=== PATIENT | male | born 1935 | race Caucasian/White ===

== ENCOUNTER 2019-03-07 07:32 | Day surgery (SDC) | payer MEDICARE, OTHER ==
--- NOTE | 2019-02-28 15:30 | HP ---
CC: Dr. Judd Ruff * PREOPERATIVE HISTORY AND PHYSICAL: DATE OF ADMISSION/SURGERY: 03/07/19 This patient is scheduled for same-day surgery admission by Dr. Lopes on 03/07/19. DATE OF PREOPERATIVE HISTORY AND PHYSICAL EXAMINATION: 02/28/19. ATTENDING SURGEON: Dr. Jaiden Lopes * (dictated by Fabiola Avery NP). CHIEF COMPLAINT: Right groin hernia. HISTORY OF PRESENT ILLNESS: The patient is an 83-year-old male recently evaluated by Dr. Lopes after he noticed a lump in the right groin while showering. It spontaneously reduces, but sometimes he has to manually reduce it. With certain activities, he notes pain; he continues to go to the gym twice a week and that does not seem to cause pain. He denies any signs or symptoms to suggest incarceration or strangulation; he denies any change in bowel or urinary habits. Dr. Lopes examined the patient and noticed a reducible right inguinal hernia; Dr. Lopes explained the nature of hernias and their potential complications and recommended surgical repair and discussed the various surgical options. The patient has opted for laparoscopic right inguinal hernia repair with mesh as a same-day surgery procedure under general anesthesia. Dr. Lopes discussed the relevant risks and benefits and today, I reviewed the expected postoperative care and recovery. The patient has had a chance to ask questions and stated that he understands the information and is satisfied with the answers given to his questions. He will sign surgical consent on the day of surgery. PAST MEDICAL HISTORY: Significant for paroxysmal atrial fibrillation, followed by Dr. Alex and please refer to Dr. Alex's office note of 01/12/19 as she has cleared the patient to proceed with surgery. PAST SURGICAL HISTORY: Right hand surgery after trauma; vasectomy; and resection of skin lesions on 2 separate occasions. MEDICATIONS: 1. Eliquis 5 mg p.o. b.i.d. and the patient will take his last dose in preparation for surgery on the evening of 03/03/19, so he will be off the Eliquis for 3 full days preoperatively as recommended by Dr. Alex. 2. Metoprolol ER 25 mg one-half tablet p.o. daily. 3. Selenium 100 mcg p.o. daily. 4. Vitamin D3 1000 International Units daily. 5. Healthy Eyes SuperVision Eye Vitamin 2 tablets p.o. daily. ALLERGIES: No known drug allergies. FAMILY HISTORY: No known anesthesia complications, bleeding tendencies, or clotting disorders. SOCIAL HISTORY: He is and his accompanied him to the visit today. 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 He consumes a glass of scotch and a glass of wine daily. He denies the use of other substances. He is a former pipe smoker, who quit in 1969. REVIEW OF SYSTEMS: Constitutional: No fevers, chills, excessive fatigue, or weight loss. General: No history of anesthesia complications. No history of deep vein thrombosis or pulmonary embolism. No unusual bleeding while on anticoagulation, but he does bruise easily. Endocrine: No diabetes or thyroid disease. Respiratory: No dyspnea on exertion. No chronic cough. He exercises by playing pickleball. Cardiovascular: No anginal chest pain or palpitations. He does have a history of atrial fibrillation, atrial flutter. Currently, the rate is well controlled on metoprolol. Gastrointestinal: No nausea, vomiting, diarrhea, GI bleeding, constipation, or change in bowel habits. Genitourinary: No dysuria. He does get up 1 to 2 times a night to urinate. Musculoskeletal: Normal strength and tone. Neurologic: No headache or blurred vision. No areas of focal weakness or numbness. No syncopal episodes. Psychiatric: No reported insomnia, anxiety, or depression. PHYSICAL EXAMINATION GENERAL SURVEY: The patient is an 83-year-old male, well developed, well nourished, in no acute distress. VITAL SIGNS: Height 68 inches, weight 151 pounds, body mass index 23. Blood pressure 138/84, pulse 60 and regular, respiratory rate 16, temperature 97.2 tympanic. HEENT: Benign. NECK: Supple. No cervical lymphadenopathy. LUNGS: Breath sounds bilaterally clear and equal. HEART: Irregularly irregular. No murmurs or rubs. ABDOMEN: Active bowel sounds. Soft and nondistended, nontender throughout. Inguinal exam done by Dr. Lopes revealed a reducible right inguinal hernia. No left inguinal hernia. BACK: No CVA tenderness. RECTAL: Exam deferred. EXTREMITIES: Warm without edema or skin ulcerations. NEUROLOGIC: Alert and oriented x3. Steady gait. SKIN: Warm, dry, intact. IMPRESSION: Right inguinal hernia. PLAN: Same-day surgery admission to Dr. Lopes' service on 03/07/19, for laparoscopic right inguinal hernia repair with mesh. As previously mentioned, the patient will hold Eliquis for 3 days preoperatively, taking the last dose in the evening on 03/03/19, and Dr. Alex recommends resuming the Eliquis when Dr. Lopes feels it is appropriate. LISA AVERY, INTERNATIONAL TRADE SPECIALIST [id number]/[facility] #: [id number] EMILE
[~2019-03-07 07:32] MED LIST: Acetaminophen TAB* 325 MG PO ONE; Buffered Lidocaine 1% SYRIN* 1 ML/SYRINGE INTRADERM ONE; Bupivacaine 0.25% EPI 200,000* 30 ML SDV ONE; Lactated Ringers 1000 ML Bag* 1,000 ML IV SCH
[2019-03-07] MEDS ORDERED: ceFAZolin 2 GM in NS PREMIX(*) 2 GM/100 ML BAG IVPB ONE (07:51)
[2019-03-07] MEDS ORDERED: Heparin VIAL(*) 5000 UNITS/ML VIAL (FIVE THOUSAND) ONE (07:51)
[2019-03-07] MEDS ORDERED: Acetaminophen TAB* 325 MG ONE (08:07)
[2019-03-07] MEDS ORDERED: PROCHLORPERAZINE INJ 5 MG/ML 2 ML VIAL IV PRN (08:19)
[2019-03-07] MEDS ORDERED: Ondansetron INJ* 2 MG/ML VIAL IV PRN (08:19)
[2019-03-07] MEDS ORDERED: oxyCODONE TAB* 5 MG TAB PO PRN (08:19)
[2019-03-07] MEDS ORDERED: Naloxone* 0.4 MG/ML 1 ML VIAL IV PRN (08:19)
[2019-03-07] MEDS ORDERED: diPHENhydraMINE IV* 50 MG/ML 1 ml VIAL (BENADRYL) IV PRN (08:19)
[2019-03-07] MEDS ORDERED: fentaNYL* 50 MCG/ML 2 ML VIAL (100 MCG VIAL) ONE (08:27)
[2019-03-07] MEDS ORDERED: Midazolam* 1 MG/ML 2 ML VIAL (2 MG) ONE (08:27)
[2019-03-07] MEDS ORDERED: Propofol* 10 MG/ML 20 ML BTL ONE (08:29)
[2019-03-07] MEDS ORDERED: Lidocaine 2% PF* 10 ML AMP ONE (08:30)
[2019-03-07] MEDS ORDERED: Rocuronium* 10 MG/ML VIAL ONE ×2 (08:30→10:22)
[2019-03-07] MEDS ORDERED: Phenylephrine 40 MCG/ML SYRINGE ONE ×2 (09:00→09:10)
[2019-03-07] MEDS ORDERED: Phenylephrine 10 MG/ML VIAL* 1 ML VIAL ONE (09:20)
[2019-03-07] MEDS ORDERED: HYDROmorphone INJ1* 1 MG/ML SYRINGE ONE ×2 (09:52→10:50)
[2019-03-07] MEDS ORDERED: Ketorolac INJ* 30 MG/ML 1 ML VIAL ONE (10:28)
[2019-03-07] MEDS ORDERED: Ondansetron INJ* 2 MG/ML VIAL ONE (10:28)
[2019-03-07] MEDS ORDERED: Sugammadex * 200 MG/2 ML VIAL IV PUSH ONE (10:33)
[2019-03-07] MEDS: HYDROmorphone INJ1* 1 MG/ML SYRINGE IV PRN ×2 (10:51→11:01)
[2019-03-07] MEDS ORDERED: oxyCODONE TAB* 5 MG TAB ONE (11:15)
[2019-03-07 12:51] VITALS: BP 151/86
--- NOTE | 2019-03-07 20:24 | OP ---
CC: Judd Ruff MD * DATE OF OPERATION: 03/07/19 - [facility] DATE OF : 33 SURGEON: Jaiden Lopes MD. LAB ASSISTANT: DEBORAH Benavides. ANESTHESIOLOGIST: Chloé Iverson MD. ANESTHESIA: General endotracheal. PRE-OP DIAGNOSIS: Right inguinal hernia. POST-OP DIAGNOSIS: Right inguinal hernia. OPERATIVE PROCEDURE: Laparoscopic transabdominal preperitoneal repair of right inguinal hernia with mesh. ESTIMATED BLOOD LOSS: Minimal. IV FLUIDS: Crystalloid. SPECIMEN: None. DRAINS: None. COMPLICATIONS: None. COUNTS: The instrument, needle, and sponge counts correct. OPERATIVE FINDINGS: Indirect right inguinal hernia. DESCRIPTION OF PROCEDURE: The patient was brought to the operating room and placed on the table supine. Sequential compression devices were placed in both lower extremities. General anesthesia was administered. The patient had a Allred catheter placed, then was positioned and padded appropriately, prepped and draped in the usual sterile fashion, and he received appropriate preoperative antibiotics. Local anesthetic was infiltrated into the skin and soft tissue prior to making each incision. Entry to the abdomen was through a supraumbilical right side of midline incision accommodating an 11-mm trocar. First, Veress needle was passed into the peritoneal cavity and carbon dioxide insufflated to a pressure of 15 mmHg. Next, the 11-mm trocar was placed and then laparoscope introduced. The inspection revealed no injury to the underlying viscera. Under direct visualization, 5-mm trocars were placed in the right lower quadrant and also in the left lower quadrant. Inspection of the groin revealed an indirect right inguinal hernia containing appendix. There was a dimple on the left inguinal region, which was suspicious for hernia but close inspection did not reveal this to be a hernia. Preperitoneal dissection proceeded about 8 cm cephalad to the ilioinguinal ligament. The peritoneum was incised transversely and then the peritoneal pocket was created using a combination of sharp and blunt dissection with cautery. Dissection proceeded down to the symphysis pubis and the Jeff ligament was identified. The inferior epigastric vessels were identified and preserved anteriorly. Dissection proceeded out laterally to the anterior superior iliac supine. The indirect inguinal hernia sac was retracted and cord structures were dissected free from this. They were preserved. The sac was completely dissected free and the retroperitoneal dissection proceeded to create an adequate space to place the Medtronic ProGrip right-sided anatomical mesh. The mesh was placed into the peritoneal cavity and positioned crossing the midline and covering the direct, indirect and femoral spaces. Once the mesh was in good position, the peritoneal incision was closed with 3-0 V-Loc 90 suture running. The hernia sac was sutured up to the peritoneal membrane in the lateral direction. The rent in the peritoneum near the inferior most aspect of the dissection was closed with a suture of 3-0 Vicryl. Inspection revealed no defects within the peritoneum. The hemostasis was assured. The ports were removed under direct visualization. Carbon dioxide was released. The 11-mm port site was closed with 0 Vicryl to approximate the anterior and posterior fascia. Skin incisions were closed with 4-0 Monocryl in subcuticular fashion and DermaFlex was applied. The patient tolerated this procedure well. He was extubated uneventfully. He was transferred to Recovery in stable condition. [id number]/[facility] #: [id number] MTDD
== END 2019-03-07 12:50 | disposition home or self-care (01) ==
LOC: OR 07:32
PROVIDERS: ATTEND Surgery
DX: K40.90 Unilateral inguinal hernia, without obstruction or gangrene, not specified as recurrent (principal); Z87.891 Personal history of nicotine dependence; I48.0 Paroxysmal atrial fibrillation; I10 Essential (primary) hypertension; Z79.01 Long term (current) use of anticoagulants
CPT/HCPCS: 93005; A9270-GY; C1781; J0690; J1170; J1644; J1885; J2001; J2250; J2405; J2704; J3010

== ENCOUNTER 2022-08-23 19:23 | Observation (INO) ==
[2022-08-23] MEDS ORDERED: Iodixanol (CONTRAST) 320 MG/ML 100 ML SDV IV ONE (19:59)
[2022-08-23 20:06] LABS: ABS Basophils 0.1 10^3/uL (0.0-0.1); ABS Eosinophils 0.3 10^3/uL (0.0-0.5); ABS Lymphocytes 2.3 10^3/uL (1.0-4.8); ABS Monocytes 1.1 10^3/uL (0.0-1.1); ABS Neutrophils 4.5 10^3/uL (1.5-7.6); ABS Nucleated RBC 0.01 10^3/ul; Hematocrit 45.5 % (38-53); Hemoglobin 15.6 g/dL (13.2-16.3); Lymphocyte % 27.6 %; Mean Corpuscular Hemoglobin 33.2 pg (27-33); Mean Corpuscular Hgb Conc 34.4 g/dL (31-36); Mean Corpuscular Volume 96.5 fL (80-97); Mean Platelet Volume 7.7 fL (7.5-11.2); Nucleated Red Blood Cells % 0.2 /100 WBC (0.0-0.4); Platelet Count 230 10^3/uL (150-450); Red Blood Count 4.72 10^6/uL (4.06-5.63); White Blood Count 8.3 10^3/uL (3.6-10.2)
[2022-08-23 20:30] LABS: Activated Partial Thrombo Time 32.9 seconds (26.0-38.0); INR 1.35 (0.88-1.18)
[2022-08-23 20:46] LABS: Albumin/Globulin Ratio 1.6 (1-3); Calcium 9.2 mg/dL (8.6-10.3); Creatinine, Serum 1.56 mg/dL (0.67-1.17); Globulin 2.5 g/dL (2-4); HDL Cholesterol 36.7 mg/dL; Potassium 4.6 mmol/L (3.5-5.0); Total Bilirubin 0.5 mg/dL (0.2-1.0); Total Protein 6.5 g/dL (6.4-8.9); eGFR CKD-EPI 42.7 (>60)
[2022-08-23 21:06] LABS: Urine Appearance Clear; Urine Bilirubin Negative (Negative); Urine Blood Negative (Negative); Urine Color Yellow; Urine Glucose Negative (Negative); Urine Ketones Negative (Negative); Urine Nitrite Negative (Negative); Urine Protein Negative (Negative); Urine Specific Gravity 1.032 (1.002-1.030); Urine Urobilinogen Negative (Negative)
[2022-08-24 05:47] LABS: Blood Urea Nitrogen 23 mg/dL (6-24); CO2 Carbon Dioxide 25 mmol/L (22-32); Calcium 8.6 mg/dL (8.6-10.3); Chloride 101 mmol/L (101-111); Creatinine, Serum 1.16 mg/dL (0.67-1.17); Glucose 92 mg/dL (70-100); Sodium 133 mmol/L (135-145)
[2022-08-24 05:49] LABS: Anion Gap 7 mmol/L (2-16)
[2022-08-24 17:12] VITALS: BP 183/102
== END 2022-08-24 17:57 | disposition home or self-care (01) ==
LOC: EDHOLD 19:23 → ED 19:23 → SUATTDRO 23:04 → EDHOLD 08-24 17:57
PROVIDERS: ADMIT Internal Medicine; ATTEND Internal Medicine

== ENCOUNTER 2022-09-03 17:50 | Observation (INO) ==
[2022-09-03 20:38] LABS: Hematocrit 47.4 % (38-53); Hemoglobin 16.1 g/dL (13.2-16.3); Mean Corpuscular Hemoglobin 33.3 pg (27-33); Mean Corpuscular Volume 97.9 fL (80-97); Mean Platelet Volume 7.6 fL (7.5-11.2); Platelet Count 262 10^3/uL (150-450); Red Blood Count 4.85 10^6/uL (4.06-5.63); Red Cell Distribution Width 12.9 % (12-17); White Blood Count 8.2 10^3/uL (3.6-10.2)
[2022-09-03 21:13] LABS: Calcium 9.3 mg/dL (8.6-10.3); Creatinine, Serum 1.39 mg/dL (0.67-1.17); eGFR CKD-EPI 49.1 (>60)
[2022-09-04 02:30] LABS: TSH Ultra Thyroid Stim Horm 9.18 mcIU/mL (0.34-5.60)
[2022-09-04] MEDS ORDERED: Cholecalciferol (VIT D3) 1,000 unit TAB PO SCH (09:00)
[2022-09-04 11:55] VITALS: BP 155/105
== END 2022-09-04 11:55 | disposition home or self-care (01) ==
LOC: ED 17:50 → EDHOLD 17:50 → SUATTDRO 09-04 01:06 → EDHOLD 09-04 11:54
PROVIDERS: ADMIT Hospitalist; ATTEND Internal Medicine

== ENCOUNTER 2023-10-08 18:45 | Observation (INO) ==
[2023-10-08 20:08] LABS: ABS Eosinophils 0.2 10^3/uL (0.0-0.5); ABS Lymphocytes 2.1 10^3/uL (1.0-4.8); ABS Monocytes 1.3 10^3/uL (0.0-1.1); ABS Neutrophils 9.5 10^3/uL (1.5-7.6); ABS Nucleated RBC 0.01 10^3/ul; Eosinophil % 1.7 %; Hematocrit 25.8 % (38-53); Hemoglobin 8.8 g/dL (13.2-16.3); Lymphocyte % 16.2 %; Mean Corpuscular Hemoglobin 33.3 pg (27-33); Mean Corpuscular Hgb Conc 34.1 g/dL (31-36); Mean Corpuscular Volume 97.6 fL (80-97); Platelet Count 215 10^3/uL (150-450); Red Blood Count 2.64 10^6/uL (4.06-5.63); Red Cell Distribution Width 13.1 % (12-17); White Blood Count 13.1 10^3/uL (3.6-10.2)
[2023-10-08 20:16] LABS: INR 1.43 (0.83-1.13)
[2023-10-08 21:00] LABS: ALT 13 U/L (7-52); AST 18 U/L (13-39); Albumin 3.4 g/dL (3.2-5.2); Albumin/Globulin Ratio 1.8 (1-3); Alkaline Phosphatase 50 U/L (35-149); Anion Gap 5 mmol/L (2-16); Blood Urea Nitrogen 69 mg/dL (6-24); CO2 Carbon Dioxide 25 mmol/L (22-32); Calcium 8.7 mg/dL (8.6-10.3); Chloride 104 mmol/L (101-111); Creatinine, Serum 1.45 mg/dL (0.67-1.17); Globulin 1.9 g/dL (2-4); Glucose 102 mg/dL (70-100); Potassium 4.9 mmol/L (3.5-5.0); Sodium 134 mmol/L (135-145); Total Bilirubin 0.4 mg/dL (0.2-1.0); Total Protein 5.3 g/dL (6.4-8.9); eGFR CKD-EPI 46.3 (>60)
[2023-10-08] MEDS: Iodixanol (CONTRAST) 320 MG/ML 100 ML SDV IV ONE (21:47)
[2023-10-09] MEDS: Pantoprazole VIAL 40 MG VIAL IV SCH (01:42)
[2023-10-09] MEDS ORDERED: Metoclopramide 5 MG/ML VIAL (10 mg) IV PRN (01:52)
[2023-10-09] MEDS: Lactated Ringers 1000 ml BAG 1,000 ML IV SCH (01:57)
[2023-10-09 02:20] LABS: C Reactive Protein 2.19 mg/L (<8.01); Magnesium 1.7 mg/dL (1.9-2.7)
[2023-10-09 03:28] LABS: Folate > 20.00 ng/mL (5.90-24.80)
[2023-10-09 03:29] LABS: Vitamin B12 224 pg/mL (180-914)
[2023-10-09] MEDS: Magnesium Sulfate IV 1GM/100ML 1 GM/100 ML BAG IV ONE (03:30)
[2023-10-09 03:47] LABS: ABS Basophils 0.1 10^3/uL (0.0-0.1); ABS Eosinophils 0.3 10^3/uL (0.0-0.5); ABS Lymphocytes 1.7 10^3/uL (1.0-4.8); ABS Neutrophils 8.5 10^3/uL (1.5-7.6); ABS Nucleated RBC 0.01 10^3/ul; Eosinophil % 2.5 %; Hematocrit 22.5 % (38-53); Hemoglobin 7.6 g/dL (13.2-16.3); Lymphocyte % 14.7 %; Mean Corpuscular Hgb Conc 33.8 g/dL (31-36); Mean Corpuscular Volume 97.7 fL (80-97); Mean Platelet Volume 8.1 fL (7.5-11.2); Platelet Count 203 10^3/uL (150-450); Red Cell Distribution Width 13.3 % (12-17); White Blood Count 11.6 10^3/uL (3.6-10.2)
[2023-10-09 07:05] LABS: ALT 13 U/L (7-52); Albumin 3.2 g/dL (3.2-5.2); Albumin/Globulin Ratio 1.7 (1-3); Alkaline Phosphatase 43 U/L (35-149); Anion Gap 6 mmol/L (2-16); Blood Urea Nitrogen 51 mg/dL (6-24); CO2 Carbon Dioxide 24 mmol/L (22-32); Calcium 8.3 mg/dL (8.6-10.3); Chloride 105 mmol/L (101-111); Creatinine, Serum 1.21 mg/dL (0.67-1.17); Globulin 1.9 g/dL (2-4); Glucose 95 mg/dL (70-100); Sodium 135 mmol/L (135-145); Total Bilirubin 0.6 mg/dL (0.2-1.0); Total Protein 5.1 g/dL (6.4-8.9); eGFR CKD-EPI 57.6 (>60)
[2023-10-09 08:10] LABS: ABS Basophils 0.1 10^3/uL (0.0-0.1); ABS Eosinophils 0.3 10^3/uL (0.0-0.5); ABS Neutrophils 7.3 10^3/uL (1.5-7.6); Eosinophil % 3.1 %; Hemoglobin 8.1 g/dL (13.2-16.3); Lymphocyte % 18.4 %; Mean Corpuscular Hemoglobin 34.3 pg (27-33); Mean Corpuscular Hgb Conc 35.2 g/dL (31-36); Mean Corpuscular Volume 97.5 fL (80-97); Mean Platelet Volume 7.6 fL (7.5-11.2); Platelet Count 201 10^3/uL (150-450); Red Blood Count 2.36 10^6/uL (4.06-5.63); Red Cell Distribution Width 13.2 % (12-17); White Blood Count 10.7 10^3/uL (3.6-10.2)
[2023-10-09 08:55] LABS: Potassium Redraw 4.2 mmol/L (3.5-5.0)
[2023-10-09] MEDS ORDERED: fentaNYL 100 mcg/2 ml 50 MCG/ML VIAL ONE (12:11)
[2023-10-09] MEDS ORDERED: Midazolam 10 mg/10 ml VIAL 1 mg/ml 10 ml VIAL (10 mg) ONE (12:11)
[2023-10-09 15:49] VITALS: BP 95/55
== END 2023-10-09 17:00 | disposition home or self-care (01) ==
LOC: ED 18:45 → SUATTDRO 10-09 00:27 → INTOOBSV 10-09 00:27 → EDHOLD 10-09 00:27 → MEDTELE 10-09 08:00
PROVIDERS: ADMIT Internal Medicine; ATTEND Student in an Organized Health Care Education/Training Program